=== PATIENT | male | born 1965 | race Caucasian/White ===

== ENCOUNTER 2021-01-02 19:36 | Emergency (ER) | payer MEDICARE, MEDICAID ==
[~2021-01-02] VITALS: Ht 165.1 cm; Wt 104.3 kg
[2021-01-02 19:58] VITALS: BP_SYST 151
--- NOTE | 2021-01-02 19:58 | NUR ---
Patient to ER bed 03 to gown for evaluation. Side rails up. Report given to ANAND Castaneda
--- NOTE | 2021-01-02 19:59 | NUR ---
ER Dr. WELLS at bedside examining patient.
--- NOTE | 2021-01-02 20:02 | NUR ---
Patient from home complaining of intermittent sharp left sided abdominal that wraps around to the back x 3 weeks. Patient reports that it worsens after eating. Abdomen is soft. Pain 8/10. Denies nausea, vomiting or diarrhea. HX of chronic neck and back pain. Denies any surgical history.
--- NOTE | 2021-01-02 20:10 | NUR ---
lab at bedside drawing labs.
--- NOTE | 2021-01-02 20:10 | NUR ---
Neeta mcneil in ED - 01/02/21 at 2010 by LYN Patient transported to radiology via WHEELCHAIR, accompanied by MEDICAL CLERICAL ASSISTANT AND MOTHER.
--- NOTE | 2021-01-02 20:11 | NUR ---
Patient transported to radiology via WHEELCHAIR, accompanied by [employer] SPECIALIST.
[2021-01-02 20:18] LABS: BASOPHILS # (AUTO) 0.1 K/uL (0.0-0.2); BASOPHILS % (AUTO) 0.7 % (0.0-2.0); EOSINOPHILS # (AUTO) 0.7 K/uL (0.0-0.4); EOSINOPHILS % (AUTO) 6.8 % (0.0-4.0); HEMATOCRIT 38.6 % (36-54); HEMOGLOBIN 13.3 g/dL (14.0-18.0); LYMPHOCYTES # (AUTO) 3.8 K/uL (1.0-5.5); LYMPHOCYTES % (AUTO) 37.7 % (20.5-51.5); MEAN CORPUSCULAR HEMOGLOBIN 32 pg (27-31); MEAN CORPUSCULAR HGB CONC 34 % (32-36); MEAN CORPUSCULAR VOLUME 92 fL (79.0-98.0); MONOCYTES # (AUTO) 0.9 K/uL (0.0-1.0); MONOCYTES % (AUTO) 8.7 % (1.7-9.3); NEUTROPHILS # (AUTO) 4.7 K/uL (1.8-7.7); NEUTROPHILS % (AUTO) 46.1 % (40.0-70.0); PLATELET COUNT (AUTO) 261 K/uL (130-430); RED BLOOD CELL COUNT(AUTO) 4.19 MIL/uL (4.2-6.2); RED CELL DISTRIBUTION WIDTH 13.1 % (9.0-15.0); WHITE BLOOD COUNT (AUTO) 10.2 K/uL (4.8-10.8)
--- NOTE | 2021-01-02 20:27 | NUR ---
Returned from radiology, back to [facility].
[2021-01-02 20:33] LABS: CALCIUM 8.7 mg/dL (8.4-11.0); CREATININE 0.76 mg/dL (0.55-1.30); POTASSIUM 3.7 mmol/L (3.5-5.1)
[2021-01-02 20:38] LABS: INR 0.9 (0.80-1.20); PROTHROMBIN TIME 9.3 SECS (9.5-12.5)
[2021-01-02 20:39] LABS: ALBUMIN 3.6 g/dL (3.4-4.8); TOTAL BILIRUBIN 0.4 mg/dL (0.0-1.0)
[2021-01-02 21:56] LABS: BILIRUBIN,URINE NEGATIVE (NEGATIVE); BLOOD, URINE NEGATIVE (NEGATIVE); CLARITY/URINE CLEAR (CLEAR); COLOR,URINE YELLOW (YELLOW); GLUCOSE,URINE NEGATIVE (NEGATIVE); KETONES,URINE NEGATIVE (NEGATIVE); LEUKOCYTE ESTERASE ,URINE NEGATIVE (NEGATIVE); NITRITE, URINE NEGATIVE (NEGATIVE); PROTEIN URINE NEGATIVE (NEGATIVE); UROBILINOGEN,URINE 0.2 (0.2-1.0)
--- NOTE | 2021-01-02 22:12 | NUR ---
dr. cardozo at bedside speaking with patient regarding results and plan of care.
[2021-01-02 22:24] VITALS: BP_SYST 127
--- NOTE | 2021-01-02 22:25 | NUR ---
Patient given written and verbal discharge instructions and verbalizes understanding. ER MD discussed with patient the results and treatment provided. Patient in stable condition. ID arm band removed. Rx of norco and motrin given. Patient educated on pain management and to follow up with PMD. Pain Scale 3/10. Opportunity for questions provided and answered. Medication side effect fact sheet provided.
== END 2021-01-02 22:24 | disposition home or self-care (01) ==
LOC: SED 19:36
DX: R10.84 Generalized abdominal pain (principal)
CPT/HCPCS: 36415; 76376; 80053; 81003; 82150-TC; 83605; 83690-TC; 84484; 85025; 85610-TC; 85730-TC; 99284

== ENCOUNTER 2021-02-05 09:30 | Emergency (ER) | payer MEDICARE, MEDICAID, SELFPAY ==
[~2021-02-05] VITALS: Ht 172.7 cm; Wt 104.3 kg
--- NOTE | 2021-02-05 09:36 | NUR ---
Placed in room 7. Placed on ware dresser, blood pressure machine and pulse oximeter. To gown for exam. Side rails up. Report given to ANAND Weeks.
--- NOTE | 2021-02-05 09:36 | NUR ---
ER at bedside examining patient.
--- NOTE | 2021-02-05 09:37 | NUR ---
ER Dr. Lr at bedside examining patient.
[2021-02-05 09:38] VITALS: BP_SYST 148
--- NOTE | 2021-02-05 09:38 | NUR ---
pt. brought in by girlfriend from home with midline chest pain 2/10, non radiating, woke up on floor this morning with bump on back of left side of head, post drinking episode last night. pt. denies knowing what or how much he drank but states it was hard liquior. Does not remember falling or going to sleep. bump to back of head small, no bruising, skin intact, not "very painful", concerned about chest pain.
[2021-02-05] MEDS ORDERED: NITROGLYCERIN 1 INCH (GM) OINT. TP ONE (09:43)
[2021-02-05] MEDS ORDERED: MORPHINE 4 MG INJ. 4 MG/ML VIAL IVP ONE (09:43)
[2021-02-05] MEDS ORDERED: ASPIRIN 325 MG TABLET PO ONE (09:45)
[2021-02-05] MEDS ORDERED: ENOXAPARIN SODIUM 100 MG/ML SYRINGE SUBCUT ONE (09:45)
--- NOTE | 2021-02-05 09:57 | NUR ---
Patient transported to radiology via wheelchair, accompanied by staff.
--- NOTE | 2021-02-05 10:08 | NUR ---
# 20 gauge angiocath placed to left wrist. Use of asceptic technique. Opsite placed over site. Blood return noted. Blood for lab drawn from site. Flushed with 10 cc of normal saline. No evidence of infiltration noted. Patient tolerated well.
[2021-02-05 10:13] LABS: BASOPHILS # (AUTO) 0.1 K/uL (0.0-0.2); BASOPHILS % (AUTO) 0.8 % (0.0-2.0); EOSINOPHILS # (AUTO) 0.4 K/uL (0.0-0.4); EOSINOPHILS % (AUTO) 4.8 % (0.0-4.0); HEMATOCRIT 39.9 % (36-54); HEMOGLOBIN 13.7 g/dL (14.0-18.0); LYMPHOCYTES # (AUTO) 2.5 K/uL (1.0-5.5); LYMPHOCYTES % (AUTO) 31.8 % (20.5-51.5); MEAN CORPUSCULAR HEMOGLOBIN 32 pg (27-31); MEAN CORPUSCULAR HGB CONC 34 % (32-36); MEAN CORPUSCULAR VOLUME 92 fL (79.0-98.0); MONOCYTES # (AUTO) 0.4 K/uL (0.0-1.0); MONOCYTES % (AUTO) 4.5 % (1.7-9.3); NEUTROPHILS # (AUTO) 4.6 K/uL (1.8-7.7); NEUTROPHILS % (AUTO) 58.1 % (40.0-70.0); PLATELET COUNT (AUTO) 245 K/uL (130-430); RED BLOOD CELL COUNT(AUTO) 4.34 MIL/uL (4.2-6.2); WHITE BLOOD COUNT (AUTO) 7.9 K/uL (4.8-10.8)
[2021-02-05 10:18] LABS: CALCIUM 8.7 mg/dL (8.4-11.0); CREATININE 0.65 mg/dL (0.55-1.30); POTASSIUM 3.7 mmol/L (3.5-5.1)
[2021-02-05 10:22] LABS: PROTHROMBIN TIME 10.4 SECS (9.5-12.5)
[2021-02-05 10:24] LABS: TOTAL BILIRUBIN 0.4 mg/dL (0.0-1.0)
--- NOTE | 2021-02-05 13:37 | NUR ---
MIREILLE FROM PATIENTS INSURANCE CALLED BACK ROOM NUMBERS CHANGED. PATIENT WILL NOW BE GOING TO [address] [place] [id number]
--- NOTE | 2021-02-05 13:50 | NUR ---
report given to Jocelyne MICHEL at [facility]
--- NOTE | 2021-02-05 15:05 | NUR ---
STATUS UPDATE GIVEN TO PAT, GIRLFRIEND
--- NOTE | 2021-02-05 15:11 | NUR ---
Patient to be transferred to [facility]. Is being transferred due to higher level of care. Receiving facility has accepting physician and available space. ER physician has signed transfer form. Patient or responsible republican has agreed to transfer and signed form. Patient belongings inventoried and will be sent with patient. Copy of nursing notes, lab reports, EKG, Physicians Orders and X-rays to be sent with patient. Report called to ANAND LUKE at receiving facility. Receiving physician is DR. GLASGOW. Ambulance service has been called for transfer. ETA is [id number].
[2021-02-05 15:12] VITALS: BP_SYST 150
== END 2021-02-05 15:11 | disposition admitted as inpatient to this hospital (09) ==
LOC: SED 09:30
DX: I20.9 Angina pectoris, unspecified (principal); I10 Essential (primary) hypertension; Z20.822 Contact with and (suspected) exposure to COVID-19
CPT/HCPCS: 36415; 70450; 71045; 76376; 80053; 83880; 84484; 85025; 85379; 85610; 85730; 87426; 93005; 96372; 96374; 99291; J1650; J2270

== ENCOUNTER 2021-02-17 18:49 | Emergency (ER) | payer MEDICARE, MEDICAID ==
[~2021-02-17] VITALS: Ht 167.6 cm; Wt 102.1 kg
[2021-02-17 18:49] VITALS: BP_SYST 155
[2021-02-17] MEDS ORDERED: DIAZEPAM 5 MG TABLET (VALIUM) PO ONE (19:15)
[2021-02-17] MEDS ORDERED: KETOROLAC TROMETHAMINE 30 MG VIAL IM ONE (19:15)
[2021-02-17] MEDS ORDERED: LABETALOL 100 MG/ 20ML VIAL IVP ONE (21:00)
[2021-02-17 21:13] LABS: MEAN CORPUSCULAR HGB CONC 34 % (32-36)
[2021-02-17] MEDS ORDERED: ALTEPLASE 100 MG VIAL IV ONE (21:15)
[2021-02-17 21:20] LABS: BASOPHILS # (AUTO) 0.1 K/uL (0.0-0.2); BASOPHILS % (AUTO) 0.6 % (0.0-2.0); EOSINOPHILS # (AUTO) 0.3 K/uL (0.0-0.4); EOSINOPHILS % (AUTO) 2.8 % (0.0-4.0); HEMATOCRIT 41.1 % (36-54); HEMOGLOBIN 13.9 g/dL (14.0-18.0); LYMPHOCYTES # (AUTO) 3.6 K/uL (1.0-5.5); LYMPHOCYTES % (AUTO) 29.6 % (20.5-51.5); MEAN CORPUSCULAR HEMOGLOBIN 31 pg (27-31); MEAN CORPUSCULAR VOLUME 93 fL (79.0-98.0); MONOCYTES # (AUTO) 0.8 K/uL (0.0-1.0); MONOCYTES % (AUTO) 6.8 % (1.7-9.3); NEUTROPHILS # (AUTO) 7.4 K/uL (1.8-7.7); NEUTROPHILS % (AUTO) 60.2 % (40.0-70.0); PLATELET COUNT (AUTO) 282 K/uL (130-430); RED BLOOD CELL COUNT(AUTO) 4.42 MIL/uL (4.2-6.2); RED CELL DISTRIBUTION WIDTH 13.3 % (9.0-15.0); WHITE BLOOD COUNT (AUTO) 12.3 K/uL (4.8-10.8)
[2021-02-17 21:25] LABS: CALCIUM 9.6 mg/dL (8.4-11.0)
[2021-02-17 21:28] LABS: PROTHROMBIN TIME 10.7 SECS (9.5-12.5)
[2021-02-17 22:22] VITALS: BP_SYST 188
== END 2021-02-17 22:22 | disposition short-term general hospital (02) ==
LOC: SED 18:49
DX: I63.9 Cerebral infarction, unspecified (principal); R53.1 Weakness
CPT/HCPCS: 36415; 37195; 70450; 73030; 76376; 80048; 82962; 85025; 85610; 85730; 86886; 86900; 86901; 96372; 96374; 99291; J1885; J3490